=== PATIENT | male | born 1975 | race Caucasian/White ===

== ENCOUNTER 2019-02-23 19:05 | Emergency (ER) | payer OTHER ==
[2019-02-23 19:20] VITALS: TEMP 98.9
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
[2019-02-23 21:00] VITALS: BP 170/90; PULSE 97; RESP 14
== END 2019-02-23 20:54 | disposition home or self-care (01) ==
LOC: EC 19:05
DX: S16.1XXA Strain of muscle, fascia and tendon at neck level, initial encounter (principal); M25.561 Pain in right knee; R51 Headache; M54.6 Pain in thoracic spine; Z88.1 Allergy status to other antibiotic agents; V47.5XXA Car driver injured in collision with fixed or stationary object in traffic accident, initial encounter; Y92.410 Unspecified street and highway as the place of occurrence of the external cause
CPT/HCPCS: 70450; 72072; 72125; 99284

== ENCOUNTER → 2019-10-16 | Outpatient (CLI) | payer OTHER ==
--- NOTE | 2019-10-16 14:27 | XR ---
EXAMINATION TYPE: XR cervical spine limited DATE OF EXAM: 10/16/2019 COMPARISON: NONE HISTORY: Postop TECHNIQUE: Four views are submitted. FINDINGS: The odontoid is intact. There are no compression deformities. The prevertebral soft tissue structur es are within normal limits. Postsurgical changes at C5-C7 appear in near-anatomic alignment. IMPRESSION: 1. Postoperative change appears in near-anatomic alignment.
== END | disposition home or self-care (01) ==
LOC: RAD 13:50
DX: M47.812 Spondylosis without myelopathy or radiculopathy, cervical region (principal); Z98.890 Other specified postprocedural states
CPT/HCPCS: 72040

== ENCOUNTER 2024-03-18 15:26 | Emergency (ER) | payer OTHER ==
[2024-03-18] MEDS ORDERED: KETOROLAC 15 MG/ML 1 ML VIAL ONE (16:49)
--- NOTE | 2024-04-18 12:51 | CT ---
EXAM: CT Cervical Spine Without Intravenous Contrast CLINICAL HISTORY: pain TECHNIQUE: Axial computed tomography images of the cervical spine without intravenous contrast. CTDI is 33.3 mGy and DLP is 1048 mGy-cm. This CT exam was performed using one or more of the following dose reduction techniques: automated exposure control, adjustment of the mA and/or kV according to patient size, and/or use of iterative reconstruction technique. COMPARISON: No relevant prior studies available. FINDINGS: Vertebrae: Postoperative changes ACDF [id number] hardware complication. Mild cervical spondylopathy resulting in varying degrees of mild canal or neural foraminal stenosis at Stenosis due to a degenerative disc bulge and bony hypertrophy. No acute fracture. Discs/spinal canal/neural foramina: See above. Soft tissues:Unremarkable. IMPRESSION: Mild cervical spondylopathy resulting in varying degrees of mild canal or neural foraminal stenosis Radiologist: Jose Junior MD Electronically Signed: 03/19/24 01:56 Study ready at 01:54 and initial results transmitted at 01:56 Results also transmitted to Film Room, Film Room @ [phone] (Fax) [facility]
== END 2024-03-19 02:16 | disposition home or self-care (01) ==
LOC: EC 15:26
CPT/HCPCS: 72125; 96372; 99284